=== PATIENT | female | born 1970 | race Caucasian/White ===

== ENCOUNTER 2018-03-06 13:32 | Emergency (ER) | payer OTHER ==
[2018-03-06 13:48] VITALS: BMI 32.9
--- NOTE | 2018-03-06 14:42 | PDOC ---
Attending Attestation - Resident Resident Name: Anisha Montalvo - HPI HPI: 03/07/18 14:30 Pt presents to the ED complaining of lower abdominal pain which is apparently chronic but was worse today. also complains of dysuria. PAtient has a long standing history of this pain and has been evaluated by [facility] several times for the same complaint. - Physicial Exam PE: 03/07/18 14:44 Agree with resident exam. PAtient is alert and oriented and in no acute distress. abdomen is soft, non tender and non distended, without guarding or rebound tenderness. - Medical Decision Making 03/07/18 14:55 Pt presents to the ED complaining of chronic abdominal pain. No abdominal tenderness on exam. LAbs and Ua are negative. Will discharge home with referral to [facility].
[2018-03-06 16:17] LABS: HEMATOCRIT 39.6 % (32.4-45.2); HEMOGLOBIN 12.9 GM/dL (10.7-15.3); MCHC 32.5 g/dl (32.0-36.0); MEAN CELL VOLUME 89.1 fl (80-96); MEAN PLT VOLUME 8.6 fl (7.5-11.1); PLATELET COUNT 315 K/MM3 (134-434); RBC 4.45 M/mm3 (3.60-5.2); RDW 14.5 % (11.6-15.6); WHITE BLOOD COUNT 9.1 K/mm3 (4.0-10.0)
--- NOTE | 2018-03-06 16:32 | PDOC ---
History of Present Illness - General Chief Complaint: Pain, Acute Stated Complaint: ABD PAIN/CONSTIPATION Time Seen by Provider: 03/06/18 14:25 History Source: Patient - History of Present Illness Initial Comments: 03/06/18 16:01 48F w/ pmhx of asthma and HTN presents with 2.5 week hx of b/l lower abdominal pain. The abd pain is worsened during defecation. Pt states she went to [facility] 1 week ago in which she was diagnosed with a UTI and given Ciprofloxacin which she had completed yesterday. She also complains of dysuria that started today. Additionally, she reports chronic black, mucus stools over the past 3-4 months that are intermittent. She recently started a new oral contraceptive 2 weeks ago and noticed that the abdominal pain has become worse and the black stool more frequent. She states that she saw her PCP 1 month ago and had bloodwork done that was normal. Admits to intentional weight loss of 25 lbs over the past 3-4 months. Denies f/c , orona/d, n/v. Past History - Past Medical History Allergies/Adverse Reactions: Allergies Allergy/AdvReac Type Severity Reaction Status Date / Time clindamycin Allergy Verified 03/06/18 14:11 Home Medications: Ambulatory Orders Albuterol Sulfate Inhaler - [Ventolin Hfa Inhaler -] 1 puff IH PRN 03/06/18 Black Cohosh Root [Black Cohosh] 540 mg PO BID 03/06/18 Bupropion HCl [Bupropion Xl] 150 mg PO DAILY 03/06/18 Flaxseed Oil [Flaxseed] 1,000 mg PO BID 03/06/18 Fluticasone Propionate [Flovent Diskus] 50 mcg IH DAILY 03/06/18 RX: Cetirizine HCl 10 mg PO DAILY 03/06/18 RX: Propranolol HCl 80 mg PO DAILY 03/06/18 Sumatriptan Succinate [Imitrex -] 50 mg PO PRN PRN 03/06/18 l-Norgest/E.estradiol-E.estrad [Ashlyna 0.15-0.03-0.01 mg Tab] 1 each PO DAILY 03/06/18 Asthma: Yes COPD: No HTN: Yes Psychiatric Problems: Yes (Depression) - Suicide/Smoking/Psychosocial Hx Smoking History: Never smoked Have you smoked in the past 12 months: No Information on smoking cessation initiated: No Hx Alcohol Use: No Drug/Substance Use Hx: No Review of Systems - Review of Systems Able to Perform ROS?: Yes Is the patient limited Persian proficient: No Constitutional: Yes: Other (hot flashes). No: Chills, Fever HEENTM: No: Recent change in vision Respiratory: No: Shortness of Breath, SOB with Exertion Cardiac (ROS): Yes: Lightheadedness. No: Chest Pain ABD/GI: Yes: Constipated, Abdominal cramping, Tarry Stools. No: Diarrhea, Vomiting : Yes: Dysuria Neurological: Yes: Headache. No: Numbness, Paresthesia Psychiatric: Yes: Depression, Stressors Hematologic/Lymphatic: No: Easy Bleeding, Easy Bruising *Physical Exam - Vital Signs Last Vital Signs Temp Pulse Resp BP Pulse Ox 98.0 F 70 16 140/114 H 100 03/06/18 13:45 03/06/18 13:45 03/06/18 13:45 03/06/18 13:45 03/06/18 13:45 - Physical Exam General Appearance: Yes: Appropriately Dressed HEENT: positive: EOMI, ANA Neck: positive: Supple Respiratory/Chest: positive: Lungs Clear, Normal Breath Sounds Cardiovascular: positive: Regular Rhythm, Regular Rate, S1, S2 Vascular Pulses: Dorsalis-Pedis (R): 2+, Doralis-Pedis (L): 2+ Gastrointestinal/Abdominal: positive: Normal Bowel Sounds, Tender (b/l lower quadrants), Soft Rectal Exam: positive: normal exam Neurologic: positive: predatory game hunter II-XII NML intact, Fully Oriented, Alert, Motor Strength 5/5 ED Treatment Course - LABORATORY CBC & Chemistry Diagram: 03/06/18 16:00 03/06/18 16:00 Medical Decision Making - Medical Decision Making 03/06/18 16:35 Abdominal pain; Ddx includes constipation, uterine fibroids, endometriosis -Will do basic labs: cbc, cmp, u/a, FOBT 03/06/18 16:58 -No acute sign of GI bleed/acute blood loss. CBC/CMP unremarkable. Stool occult neg. Await U/A results. 03/06/18 17:34 -U/A neg. Will give pt recommendation to follow up with PCP and OBGYN for further outpatient evaluation. *DC/Admit/Observation/Transfer Diagnosis at time of Disposition: Abdominal pain - Discharge Dispostion Disposition: HOME Condition at time of disposition: Good Decision to Admit order: No - Referrals Referrals: Florecita Fernandez MD [Primary Care Provider] - - Patient Instructions Printed Discharge Instructions: DI for Abdominal Pain-Adult Additional Instructions: You were seen in the ED for complaints of abdominal pain. In the ED, lab work was done that was normal. Additionally, there was no blood found in your stool. There does not appear to be an acute need for immediate hospitalization at this time. You are advised to follow up with your primary care physician within 1 week, Dr. Fernandez. Please also follow up with your OBGYN within 1 week. If you experience worsening abdominal pain, persistent black or bright red stools, chest pain, worsening shortness of breath, please proceed to your nearest emergency room immediately. - Post Discharge Activity
[2018-03-06 16:38] LABS: ANION GAP 9 MMOL/L (8-16); BLOOD UREA NITROGEN 11 mg/dL (7-18); CALCIUM 8.6 mg/dL (8.5-10.1); CHLORIDE 108 mmol/L (98-107); CO2 24 mmol/L (21-32); CREATININE 0.7 mg/dL (0.55-1.3); GLUCOSE,RANDOM 75 mg/dL (74-106); POTASSIUM 3.9 mmol/L (3.5-5.1); SODIUM 141 mmol/L (136-145)
[2018-03-06 17:29] LABS: URINE APPEARANCE CLEAR; URINE BILIRUBIN NEGATIVE (<2.0 mg/dL); URINE COLOR YELLOW; URINE GLUCOSE (UA) NEGATIVE (NEGATIVE); URINE KETONE TRACE (NEGATIVE); URINE LEUK ESTERASE NEGATIVE (NEGATIVE); URINE NITRITE NEGATIVE (NEGATIVE); URINE PROTEIN NEGATIVE (NEGATIVE); URINE UROBILINOGEN NEGATIVE mg/dL (0.2-1.0)
[2018-03-06 18:11] LABS: EPI CELLS RARE /HPF (FEW); URINE BACTERIA RARE /hpf (NONE SEEN); URINE MUCUS RARE
[2018-03-06 18:47] VITALS: BP 136/78; PULSE 78; TEMP 99.1
== END 2018-03-06 18:45 | disposition home or self-care (01) ==
LOC: JER 13:32
DX: R10.84 Generalized abdominal pain (principal); I10 Essential (primary) hypertension; J45.909 Unspecified asthma, uncomplicated
CPT/HCPCS: 36415; 80048; 81003; 81015; 82272; 85027; 99283-25

== ENCOUNTER 2018-03-13 20:16 | Emergency (ER) | payer OTHER ==
[2018-03-13 20:21] VITALS: TEMP 98.5; BMI 32.9
[2018-03-13] MEDS ORDERED: SODIUM CHLORIDE 1,000 ML IV STA (20:34)
--- NOTE | 2018-03-13 20:44 | PDOC ---
History of Present Illness - General Chief Complaint: Pain Stated Complaint: VAGINAL BLEEDING Time Seen by Provider: 03/13/18 20:24 History Source: Patient, Old Records Exam Limitations: No Limitations - History of Present Illness Travel History: No Initial Comments: 03/13/18 20:38 HISTORY OF PRESENT ILLNESS: This is a 48-year-old woman with past medical history of hypertension and chronic abdominal pain presents emergency department for evaluation of lower abdominal pain and vaginal bleeding. Patient states heavy vaginal flow but has only used 1 pad today. Patient has noted clots in the pad. Patient reports starting a new oral contraception approximately 4 weeks ago but it self DC'd use approximately 2 weeks ago. She denies any foul-smelling vaginal discharge, rectal bleeding, difficulty moving bowels or hematuria. Patient does report intermittent dysuria. Patient has been evaluated for this pain multiple times in the past and is scheduled for an outpatient ultrasound on 03/25/18. She reports abstinence for the past 3 years. She denies dizziness, shortness of breath, chest pain, nausea, vomiting, diarrhea, constipation. Denies h/o STI/PID. No recent travel or sick contacts. PAST MEDICAL HISTORY: HTN, hormonal migraines SURGICAL HISTORY: Ventral hernia repair x2 ALLERGIES: Clindamycin REVIEW OF SYSTEMS General/Constitutional: Denies fever or chills. Denies weakness, weight change. HEENT: Denies change in vision. Denies ear pain or discharge. Denies sore throat. Cardiovascular: Denies chest pain or shortness of breath. Respiratory: Denies cough, wheezing, or hemoptysis. Gastrointestinal: Denies nausea, vomiting, diarrhea or constipation. Denies rectal bleeding. Left pelvic pain. Genitourinary: +dysuria. Denies frequency, or change in urination. 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 Musculoskeletal: Denies joint or muscle swelling or pain. Denies neck or back pain. Skin and breasts: Denies rash or easy bruising. Neurologic: Denies headache, vertigo, loss of consciousness, or loss of sensation. Psychiatric: Denies depression or anxiety. Endocrine: Denies increased thirst. Denies abnormal weight change. Hematologic/Lymphatic: Denies anemia, easy bleeding, or history of blood clots. Allergic/Immunologic: Denies hives or skin allergy. Denies latex allergy. PHYSICAL EXAM General Appearance: Well-appearing, appropriately dressed. No apparent distress , no intoxication. HEENT: EOMI, PERRLA, normal ENT inspection, normal voice, TMs normal, pharynx normal. No conjunctival pallor. No photophobia, scleral icterus. Neck: Supple. Trachea midline. No tenderness, rigidity, carotid bruit, stridor , lymphadenopathy, or thyromegaly. Respiratory/Chest: Lungs CTAB. No shortness of breath, chest tenderness, respiratory distress, accessory muscle use. No crackles, rales, rhonchi, stridor , wheezing, dullness Cardiovascular: RRR. S1, S2. No JVD, murmur, bradycardia, tachycardia. Vascular Pulses: Dorsalis-Pedis (R): 2+, Dorsalis-Pedis (L): 2+ Gastrointestinal/Abdominal: Normal bowel sounds. Abdomen soft, non-distended. Left pelvic tenderness. No rebound tenderness. No organomegaly, pulsatile mass, guarding, hernia, hepatomegaly, splenomegaly. Lymphatic: No adenopathy, tenderness. Musculoskeletal/Extremities: Normal inspection. FROM of all extremities, normal capillary refill. Pelvis Stable. No CVA tenderness. No tenderness to extremities, pedal edema, swelling, erythema or deformity. Integumentary: Appropriate color, dry, warm. No cyanosis, erythema, jaundice or rash Neurologic: dairy department manager II-XII intact. Fully oriented, alert. Appropriate mood/affect. Motor strength 5/5. No appreciable EOM palsy, facial droop or sensory deficit. Past History - Past Medical History Allergies/Adverse Reactions: Allergies Allergy/AdvReac Type Severity Reaction Status Date / Time clindamycin Allergy Verified 03/13/18 20:21 Home Medications: Ambulatory Orders Albuterol Sulfate Inhaler - [Ventolin Hfa Inhaler -] 1 puff IH PRN 03/06/18 Black Cohosh Root [Black Cohosh] 540 mg PO BID 03/06/18 Bupropion HCl [Bupropion Xl] 150 mg PO DAILY 03/06/18 Cetirizine HCl 10 mg PO DAILY 03/06/18 Flaxseed Oil [Flaxseed] 1,000 mg PO BID 03/06/18 Fluticasone Propionate [Flovent Diskus] 50 mcg IH DAILY 03/06/18 Propranolol HCl 80 mg PO DAILY 03/06/18 Sumatriptan Succinate [Imitrex -] 50 mg PO PRN PRN 03/06/18 l-Norgest/E.estradiol-E.estrad [Ashlyna 0.15-0.03-0.01 mg Tab] 1 each PO DAILY 03/06/18 Asthma: Yes COPD: No HTN: Yes Psychiatric Problems: Yes (Depression) - Suicide/Smoking/Psychosocial Hx Smoking History: Never smoked Have you smoked in the past 12 months: No Hx Alcohol Use: No Drug/Substance Use Hx: No *Physical Exam - Vital Signs Last Vital Signs Temp Pulse Resp BP Pulse Ox 98.5 F 74 18 139/87 100 03/13/18 20:18 03/13/18 20:18 03/13/18 20:18 03/13/18 20:18 03/13/18 20:18 - Physical Exam Female Pelvic Exam: positive: normal external exam, cervical os closed, adnexal tenderness (right worse than left. No masses palpable.), vaginal bleeding, other (tenderness to pelvic floor muscles). negative: [facility] ED Treatment Course - LABORATORY CBC & Chemistry Diagram: 03/13/18 23:27 03/13/18 23:27 Medical Decision Making - Medical Decision Making 03/13/18 21:01 A/P: 48-year-old woman with painful vaginal bleeding Bilateral adnexal tenderness with right worse than left Pain to palpation of the pelvic floor Dark blood present in the vaginal vault. No clots noted DDx: Dysmenorrhea, endometriosis, fibroids, less likely ectopic , STI/ PID Labs, urine,TVUS, IV, normal saline 03/14/18 00:13 Transvaginal ultrasound as read by imaging telephone instrument supervisor: Uterus is anteverted and measures a 0.9 cm in length. Endometrium is 8, but there is a 2.3 cm left adnexal cyst millimeters in thickness which is normal. Normal fibroids. The right ovary measures 2.1 cm in length appears normal and demonstrates normal flow. Left ovary is not identified. There is no significant free fluid. Impression: 2.3 cm left adnexal cyst without normal ovarian parenchyma identified. No additional abnormalities. Laboratory testing reveals mild leukocytosis of 10.8. Likely inflammatory in nature. No anemia is present. Chemistries are normal. UA reveals 3+ blood, 2+ protein and 7329 RBCs which is consistent with a woman with vaginal bleeding. I will discharge the patient home to follow-up with her primary doctor. A copy of the preliminary report is been given to the patient to bring to her primary doctor for follow-up. I discussed the physical exam findings, ancillary test results and final diagnoses with the patient. I answered all of the patient's questions. The patient was satisfied with the care received and felt comfortable with the discharge plan and treatment plan. The patient will call their primary care physician within 24 hours to arrange follow-up and will return to the Emergency Department with any new, persistent or worsening symptoms. *DC/Admit/Observation/Transfer Diagnosis at time of Disposition: Dysmenorrhea, Adnexal cyst - Discharge Dispostion Disposition: HOME Condition at time of disposition: Fair Decision to Admit order: No - Referrals Referrals: Florecita Fernandez MD [Primary Care Provider] - - Patient Instructions Additional Instructions: Make an appointment with her primary doctor for reevaluation. Return to emergency department for dizziness, weakness, lightheadedness, chest pain, shortness of breath or any other concerns. Thank you very much for choosing us to provide emergent health care needs. - Post Discharge Activity
[2018-03-13] MEDS ORDERED: morphine CARPU-JECT 2 MG/1 ML DISP.SYRIN IVPUSH ONE (21:09)
[2018-03-13 22:30] LABS: URINE APPEARANCE TURBID; URINE BILIRUBIN NEGATIVE (<2.0 mg/dL); URINE COLOR RED; URINE GLUCOSE (UA) NEGATIVE (NEGATIVE); URINE KETONE NEGATIVE (NEGATIVE); URINE LEUK ESTERASE NEGATIVE (NEGATIVE); URINE NITRITE NEGATIVE (NEGATIVE); URINE PROTEIN 2+ (NEGATIVE); URINE UROBILINOGEN NEGATIVE mg/dL (0.2-1.0)
[2018-03-13 22:36] LABS: URINE MUCUS FEW
[2018-03-13 23:30] LABS: BASO % 1.2 % (0-2.0); EOS % 1.9 % (0-4.5); HEMOGLOBIN 13.2 GM/dL (10.7-15.3); LYMPH % 28.8 % (8-40); MCH 30.9 pg (25.7-33.7); MCHC 34.8 g/dl (32.0-36.0); MEAN CELL VOLUME 88.6 fl (80-96); MEAN PLT VOLUME 8.9 fl (7.5-11.1); MONO % 6.6 % (3.8-10.2); NEUT % 61.5 % (42.8-82.8); PLATELET COUNT 299 K/MM3 (134-434); RBC 4.29 M/mm3 (3.60-5.2); RDW 13.9 % (11.6-15.6); WHITE BLOOD COUNT 10.8 K/mm3 (4.0-10.0)
[2018-03-13 23:39] VITALS: BP 130/72; PULSE 78
[2018-03-13 23:47] LABS: INR 0.99 (0.83-1.09); PROTHROMBIN TIME (PATIENT) 11.7 SEC (9.7-13.0)
[2018-03-13 23:53] LABS: ALBUMIN 3.6 g/dl (3.4-5.0); ALK PHOS 72 U/L (45-117); ANION GAP 6 MMOL/L (8-16); BILIRUBIN,TOTAL 0.7 mg/dL (0.2-1); BLOOD UREA NITROGEN 12 mg/dL (7-18); CHLORIDE 108 mmol/L (98-107); CO2 25 mmol/L (21-32); CREATININE 0.7 mg/dL (0.55-1.3); GLUCOSE,RANDOM 88 mg/dL (74-106); LIPASE 119 U/L (73-393); POTASSIUM 4.2 mmol/L (3.5-5.1); SGOT/AST 34 U/L (15-37); SGPT/ALT 91 U/L (13-61); SODIUM 139 mmol/L (136-145); TOT PROT 6.8 g/dl (6.4-8.2)
== END 2018-03-14 00:36 | disposition home or self-care (01) ==
LOC: JER 20:16
PROC: 3E0337Z Introduction of Electrolytic and Water Balance Substance into Peripheral Vein, Percutaneous Approach (ICD-10-PCS; principal; 2018-03-13)
DX: N94.6 Dysmenorrhea, unspecified (principal); N94.9 Unspecified condition associated with female genital organs and menstrual cycle; I10 Essential (primary) hypertension; J45.909 Unspecified asthma, uncomplicated; F32.9 Major depressive disorder, single episode, unspecified
CPT/HCPCS: 36415; 76830-TC; 80053; 81003; 81015; 83690; 84703; 85025; 85610; 86850; 86900; 86901; 87086; 96360; 99284-25; J7030